=== PATIENT | female | born 1995 | race Caucasian/White ===

== ENCOUNTER 2020-03-14 18:02 | Emergency (ER) | payer SELFPAY ==
[~2020-03-14] VITALS: Ht 162.6 cm; Wt 57.2 kg
[2020-03-14 18:09] VITALS: BP 130/80
--- NOTE | 2020-03-14 18:17 | NUR ---
[facility] luna in [facility] - 03/14/20 at 1822 by [email or web address] patient ambulated to bed 4.
--- NOTE | 2020-03-14 18:33 | NUR ---
24 Y/O F C/C NAUSEA/DIARRHEA X 3 DAYS. PT DENIES ABDOMINAL PAIN BUT DESCRIBES ABDOMINAL DISCOMFORT DUE TO THE NAUSEA. POOR APPETITE. DENIES . PT ALLERGIES PNC. NO HX. NO RX. NO VOMITING. SIDE RAIL X1. BS NORMOACTIVE.
[2020-03-14] MEDS ORDERED: ONDANSETRON 4 MG ODT PO ONE (18:35)
[2020-03-14] MEDS ORDERED: NACL 0.9% 500 ML IV ONE (18:35)
--- NOTE | 2020-03-14 18:35 | NUR ---
ER-PA AT BEDSIDE
[2020-03-14 19:13] VITALS: BP 130/80
--- NOTE | 2020-03-14 19:13 | NUR ---
Patient discharged with v/s stable. Written and verbal after care instructions given and explained. Patient alert, oriented and verbalized understanding of instructions. Ambulatory with steady gait. All questions addressed prior to discharge. ID band removed. Patient advised to follow up with PMD. Rx of MACROBID,ZOFRAN given. Patient educated on indication of medication including possible reaction and side effects. Opportunity to ask questions provided and answered.
== END 2020-03-14 19:13 | disposition home or self-care (01) ==
LOC: MED 18:02
DX: N39.0 Urinary tract infection, site not specified (principal); R19.7 Diarrhea, unspecified; Z88.0 Allergy status to penicillin
CPT/HCPCS: 81002; 81025; 99283; J7030; Q0162

== ENCOUNTER 2020-03-15 10:16 | Emergency (ER) | payer SELFPAY ==
[~2020-03-15] VITALS: Ht 165.1 cm; Wt 63.5 kg
[2020-03-15 10:22] VITALS: BP 130/88
[2020-03-15] MEDS ORDERED: ONDANSETRON 4 MG/2 ML VIAL IVP ONE (10:45)
[2020-03-15] MEDS ORDERED: MORPHINE SULFATE 4 MG/ML SYR IVP ONE (10:45)
[2020-03-15 11:03] LABS: APPEARANCE,URINE CLEAR (CLEAR); BILIRUBIN,URINE NEGATIVE (NEGATIVE); BLOOD, URINE 3+ (NEGATIVE); COLOR,URINE YELLOW (YELLOW); LEUKOCYTE ESTERASE ,URINE TRACE (NEGATIVE); NITRITE, URINE NEGATIVE (NEGATIVE); UGLUCOSE NEGATIVE (NEGATIVE)
[2020-03-15 11:06] LABS: BASOPHILS # (AUTO) 0.1 K/uL (0.00-0.22); BASOPHILS % (AUTO) 0.9 % (0.0-2.0); EOSINOPHILS % (AUTO) 0.1 % (0.0-4.0); HEMATOCRIT 38.3 % (36-48); LYMPHOCYTES # (AUTO) 1.2 K/uL (2.5-16.5); LYMPHOCYTES % (AUTO) 16.2 % (20.5-51.1); MEAN CORPUSCULAR HEMOGLOBIN 31 pg (27-31); MEAN CORPUSCULAR HGB CONC 34 g/dL (33-37); MEAN CORPUSCULAR VOLUME 90.5 fL (80-94); MONOCYTES # (AUTO) 0.3 K/uL (0.8-1.0); MONOCYTES % (AUTO) 4.2 % (1.7-9.3); NEUTROPHILS # (AUTO) 5.9 K/uL (1.8-7.7); NEUTROPHILS % (AUTO) 78.6 % (42.2-75.2); PLATELET COUNT (AUTO) 241 K/uL (140-450); RED BLOOD CELL COUNT(AUTO) 4.24 MIL/uL (4.20-5.40); RED CELL DISTRIBUTION WIDTH 12.8 % (11.6-13.7); WHITE BLOOD COUNT (AUTO) 7.5 K/uL (4.8-10.8)
[2020-03-15 11:21] LABS: ALBUMIN 4.1 g/dL (3.4-5.0); ANION GAP 13.9 (8-16); CARBON DIOXIDE 24.7 mmol/L (21-32); CREATININE 0.7 mg/dL (0.6-1.3); POTASSIUM 3.6 mmol/L (3.5-5.1); TOTAL BILIRUBIN 0.3 mg/dL (0.0-1.0)
[2020-03-15 12:39] VITALS: BP 130/88
== END 2020-03-15 12:40 | disposition home or self-care (01) ==
LOC: MED 10:16
DX: R10.9 Unspecified abdominal pain (principal); Z88.0 Allergy status to penicillin
CPT/HCPCS: 36415; 74177; 80053; 81001; 83690; 85025; 87086; 96374; 96375; 99285; J2270; J2405; Q9967

== ENCOUNTER 2020-09-22 12:37 | Emergency (ER) | payer OTHER, SELFPAY ==
[~2020-09-22] VITALS: Ht 162.6 cm; Wt 56.7 kg
[2020-09-22 13:24] VITALS: BP 130/78
--- NOTE | 2020-09-22 13:27 | NUR ---
C/O HEADACHE, COUGH, CHEST PAIN & FEVER X2 DAYS. PT LAST TOOK TYLENOL AT 5AM TODAY. TEMP 100.3.
[2020-09-22] MEDS ORDERED: ACETAMINOPHEN 325 MG TAB PO ONE (14:30)
[2020-09-22 14:44] LABS: BASOPHILS % (AUTO) 0.7 % (0.0-2.0); EOSINOPHILS % (AUTO) 0.1 % (0.0-4.0); HEMATOCRIT 41.4 % (36-48); HEMOGLOBIN 13.9 g/dL (12.0-16.0); LYMPHOCYTES # (AUTO) 0.6 K/uL (2.5-16.5); LYMPHOCYTES % (AUTO) 11.3 % (20.5-51.1); MEAN CORPUSCULAR HEMOGLOBIN 30 pg (27-31); MEAN CORPUSCULAR HGB CONC 34 g/dL (33-37); MEAN CORPUSCULAR VOLUME 89.3 fL (80-94); MONOCYTES # (AUTO) 0.6 K/uL (0.8-1.0); MONOCYTES % (AUTO) 11.3 % (1.7-9.3); NEUTROPHILS # (AUTO) 3.9 K/uL (1.8-7.7); NEUTROPHILS % (AUTO) 76.6 % (42.2-75.2); PLATELET COUNT (AUTO) 198 K/uL (140-450); RED BLOOD CELL COUNT(AUTO) 4.64 MIL/uL (4.20-5.40); RED CELL DISTRIBUTION WIDTH 12.5 % (11.6-13.7); WHITE BLOOD COUNT (AUTO) 5.1 K/uL (4.8-10.8)
[2020-09-22 15:08] LABS: ALBUMIN 4.5 g/dL (3.4-5.0); ANION GAP 13.6 (8-16); CARBON DIOXIDE 25.8 mmol/L (21-32); CREATININE 0.7 mg/dL (0.6-1.3); POTASSIUM 4.4 mmol/L (3.5-5.1); TOTAL BILIRUBIN 0.3 mg/dL (0.0-1.0)
--- NOTE | 2020-09-22 15:33 | NUR ---
COVID SWAB COLLECTED.
--- NOTE | 2020-09-22 15:37 | NUR ---
HANDED ON URINE CUP.
[2020-09-22] MEDS ORDERED: KETOROLAC 30 MG/ML VIAL IM ONE (16:15)
--- NOTE | 2020-09-22 17:04 | NUR ---
Patient discharged with v/s stable. Written and verbal after care instructions given and explained. Patient alert, oriented and verbalized understanding of instructions. Ambulatory with steady gait. All questions addressed prior to discharge. ID band removed. Patient advised to follow up with PMD. Rx of IBUPROFEN, TYLENOL given. Patient educated on indication of medication including possible reaction and side effects. Opportunity to ask questions provided and answered.
[2020-09-22 17:05] VITALS: BP 116/67
== END 2020-09-22 17:04 | disposition home or self-care (01) ==
LOC: MED 12:37
DX: M79.10 Myalgia, unspecified site (principal); Z20.828 Contact with and (suspected) exposure to other viral communicable diseases; Z88.0 Allergy status to penicillin
CPT/HCPCS: 36415; 71045; 80053; 81002; 81025; 83690; 85025; 93005; 96372; 99285; J1885; U0003